=== PATIENT | male | born 1950 | race Caucasian/White ===

== ENCOUNTER → 2017-06-20 | Outpatient (CLI) | payer OTHER | END | disposition home or self-care (01) | LOC: ROC 12:56 | PROVIDERS: ATTEND Radiology Radiation Oncology | DX: Z08 Encounter for follow-up examination after completed treatment for malignant neoplasm (principal); C61 Malignant neoplasm of prostate; K21.9 Gastro-esophageal reflux disease without esophagitis; Z88.0 Allergy status to penicillin | CPT/HCPCS: 99212; G0463 ==

== ENCOUNTER → 2018-07-11 | Outpatient (CLI) | payer OTHER | END | disposition home or self-care (01) | LOC: ROC 07:27 | PROVIDERS: ATTEND Radiology Radiation Oncology | DX: C61 Malignant neoplasm of prostate (principal) | CPT/HCPCS: 99212; G0463 ==

== ENCOUNTER 2019-06-23 09:24 | Outpatient (CLI) | payer BC, OTHER | END 2019-06-23 23:59 | disposition home or self-care (01) | LOC: ROC 09:24 | PROVIDERS: ATTEND Radiology Radiation Oncology | DX: Z08 Encounter for follow-up examination after completed treatment for malignant neoplasm (principal); C61 Malignant neoplasm of prostate; Z79.899 Other long term (current) drug therapy; Z88.0 Allergy status to penicillin | CPT/HCPCS: 99212; G0463 ==

== ENCOUNTER 2019-09-10 08:44 | Outpatient (CLI) | payer BC, OTHER | END 2019-09-10 23:59 | disposition home or self-care (01) | LOC: CFH 08:44 | PROVIDERS: ATTEND Internal Medicine | DX: J84.10 Pulmonary fibrosis, unspecified (principal); M47.814 Spondylosis without myelopathy or radiculopathy, thoracic region; I70.0 Atherosclerosis of aorta; M51.34 Other intervertebral disc degeneration, thoracic region; I25.84 Coronary atherosclerosis due to calcified coronary lesion; R91.8 Other nonspecific abnormal finding of lung field; I10 Essential (primary) hypertension; R06.02 Shortness of breath; Z79.899 Other long term (current) drug therapy; Z88.0 Allergy status to penicillin; Z85.46 Personal history of malignant neoplasm of prostate | CPT/HCPCS: 71250 ==

== ENCOUNTER → 2020-08-25 | Outpatient (CLI) | payer BC, OTHER | END | disposition home or self-care (01) | LOC: ROC 07:09 | PROVIDERS: ATTEND Radiology Radiation Oncology | DX: Z08 Encounter for follow-up examination after completed treatment for malignant neoplasm (principal); Z85.46 Personal history of malignant neoplasm of prostate | CPT/HCPCS: 99441 ==